=== PATIENT | male | born 1975 | race Caucasian/White ===

== ENCOUNTER → 2019-02-22 13:28 | Outpatient (CLI) | payer OTHER, SELFPAY ==
--- NOTE | 2019-02-22 13:31 | DI.RAD.S_ITS ---
PROCEDURE: XR KNEE LT 3V INDICATIONS: fall, swelling inner knee TECHNIQUE: 3 views of the knee were acquired. COMPARISON: None. FINDINGS: Bones: No fractures or dislocations. No suspicious bony lesions. Soft tissues: No joint effusion. No suspicious soft tissue calcifications. IMPRESSION: Normal for age, source of current pain after trauma symptoms is not seen. Dictated by: Jame Kothari M.D. on 02/22/2019 at 14:05 Approved by: Jame Kothari M.D. on 02/22/2019 at 14:06
== END ==
PROVIDERS: PCP Registered Nurse; Visit Provider Physician Assistant
DX: M25.562 Pain in left knee (principal); T14.90XA Injury, unspecified, initial encounter
CPT/HCPCS: 73562

== ENCOUNTER → 2019-12-03 14:51 | Outpatient (CLI) | payer BC, SELFPAY | PROVIDERS: PCP Registered Nurse; Visit Provider Nurse Practitioner Family | DX: R21 Rash and other nonspecific skin eruption (principal) | CPT/HCPCS: 87220 ==

== ENCOUNTER → 2020-06-16 09:32 | Outpatient (CLI) | payer BC, SELFPAY ==
[2020-06-16 10:43] LABS: Hematocrit 46.2 % (41-53); Hemoglobin 15.7 g/dL (13.5-17.5); Mean Corpuscular HGB Conc 33.9 % (30-36); Mean Corpuscular Volume 85.4 fL (80-100); Platelet Count 157 X10^3/uL (150-400); Red Blood Cell Count 5.41 X10^6/uL (4.5-5.9); Red Cell Distribution Width 13.2 % (11.6-14.8); White Blood Cell Count 5.7 X10^3/uL (4.5-11.0)
[2020-06-16 10:52] LABS: Hemoglobin A1C% w Est Avg Glu 5.2 % (4.0-6.0)
[2020-06-16 11:12] LABS: Alanine Aminotransferase 21 IU/L (<50); Albumin 4.2 g/dL (3.5-5.0); Albumin Globulin Ratio 1.2 (1.0-2.8); Alkaline Phosphatase 106 U/L (38-126); Aspartate Aminotransferase 28 IU/L (17-59); BUN Creatinine Ratio 17.9 (6-22); Bilirubin Total 0.7 mg/dL (0.2-1.3); Blood Urea Nitrogen 17 mg/dL (9-20); Calcium 9.4 mg/dL (8.4-10.2); Carbon Dioxide 27 mmol/L (22-32); Chloride 106 mmol/L (98-107); Cholesterol 134 mg/dL (140-199); Estimated Glomerular Filt Rate > 60.0 mL/min (>60); Globulin 3.4 g/dL (1.7-4.1); Glucose 100 mg/dL (70-100); HDL Cholesterol 28 mg/dL (40-60); HEMOLYSIS < 15 (0-50); LDL Cholesterol Calculated 73 mg/dL (<100); Potassium 4.4 mmol/L (3.4-5.1); Sodium 139 mmol/L (137-145); Total Protein 7.6 g/dL (6.3-8.2); Triglycerides 167 mg/dL (35-150)
[2020-06-16 11:36] LABS: Prostate Specific Antigen Scrn 0.701 ng/mL (0.1-4.0)
[2020-06-16 11:38] LABS: TSH w/ Reflex to FT4 0.73 uIU/mL (0.47-4.68)
[2020-06-16 11:39] LABS: Testosterone 161 ng/dL (132-813)
== END ==
PROVIDERS: PCP Nurse Practitioner Family; Referring Provider Nurse Practitioner Family; Visit Provider Nurse Practitioner Family
DX: Z00.00 Encounter for general adult medical examination without abnormal findings (principal); N52.9 Male erectile dysfunction, unspecified; Z13.6 Encounter for screening for cardiovascular disorders; Z12.5 Encounter for screening for malignant neoplasm of prostate
CPT/HCPCS: 36415; 80053; 80061; 83036; 84403; 84443; 85027; G0103

== ENCOUNTER → 2020-07-07 09:08 | Outpatient (CLI) | payer BC, SELFPAY ==
[2020-07-07 10:38] LABS: Follicle Stimulating Hormone 6.92 mIU/mL; Luteinizing Hormone 3.84 mIU/mL
[2020-07-07 10:52] LABS: Testosterone 185 ng/dL (132-813)
== END ==
PROVIDERS: PCP Nurse Practitioner Family; Referring Provider Nurse Practitioner Family; Visit Provider Nurse Practitioner Family
DX: R79.89 Other specified abnormal findings of blood chemistry (principal)
CPT/HCPCS: 36415; 83001; 83002; 84403

== ENCOUNTER → 2020-10-13 09:34 | Outpatient (CLI) | payer BC, SELFPAY ==
[2020-10-13] MEDS: COVID-19 VACC #1, MRNA(MOD) 100 MCG/0.5 ML VIAL IM (09:40)
== END ==
PROVIDERS: PCP Nurse Practitioner Family; Visit Provider Internal Medicine
DX: Z23 Encounter for immunization (principal)
CPT/HCPCS: 0011A; 91301

== ENCOUNTER → 2020-11-10 08:56 | Outpatient (CLI) | payer BC, SELFPAY ==
[2020-11-10] MEDS: COVID-19 VACC #2, MRNA(MOD) 100 MCG/0.5 ML VIAL IM (09:02)
== END ==
PROVIDERS: PCP Nurse Practitioner Family; Visit Provider Internal Medicine
DX: Z23 Encounter for immunization (principal)
CPT/HCPCS: 0012A; 91301